=== PATIENT | female | born 1930 | race African-American/Black ===

== ENCOUNTER 2016-07-07 08:14 | Emergency (ER) | payer MEDICARE, OTHER ==
[~2016-07-07 08:14] MED LIST: ASAB PO; CRESTOR10 PO; L20 PO; LOTREL1 CA2 PO; NORV10 PO; SPIRO25 PO; TRANDAT300 PO
[2016-07-24] MEDS ORDERED: Z100 PO (10:58)
[2016-07-24] MEDS ORDERED: HYGROTON 25 MG25 MG PO (11:00)
[2016-07-24] MEDS ORDERED: COREG12 PO (11:01)
[2016-07-24] MEDS ORDERED: FOLIC ACID PO (11:02)
[2016-07-24] MEDS ORDERED: CATAPRES2 TOP (11:04)
[2016-07-24] MEDS ORDERED: CRESTOR5 MG PO (14:36)
== END 2016-07-07 08:57 | disposition home or self-care (01) ==
LOC: ER 08:14
DX: S05.11XA Contusion of eyeball and orbital tissues, right eye, initial encounter (principal); J40 Bronchitis, not specified as acute or chronic; I11.0 Hypertensive heart disease with heart failure; I50.9 Heart failure, unspecified; Z86.73 Personal history of transient ischemic attack (TIA), and cerebral infarction without residual deficits; Z90.710 Acquired absence of both cervix and uterus; Z95.0 Presence of cardiac pacemaker; Z79.82 Long term (current) use of aspirin; Z79.899 Other long term (current) drug therapy; W01.10XA Fall on same level from slipping, tripping and stumbling with subsequent striking against unspecified object, initial encounter
CPT/HCPCS: 70450; 71010; 72125; 94640; 96372; 99284

== ENCOUNTER 2016-07-29 14:49 | Day surgery (SDC) | payer MEDICARE, OTHER ==
[2016-07-26 10:57] LABS: HEMATOCRIT 35.8 % (36.0-48.0); HEMOGLOBIN 11.9 g/dL (12.0-16.0)
[2016-07-26 11:07] LABS: CALCIUM, SERUM 9.5 MG/DL (8.5-10.4); CHLORIDE, SERUM 99 MMOL/L (96-112); CO2 (CARBON DIOXIDE) 27 MMOL/L (24-34); CREATININE 1.94 MG/DL (0.55-1.02); GFR AFRICAN AMERICAN 26 ML/MIN (>=60); GFR NON AFRICAN AMERICAN 23 ML/MIN (>=60); GLUCOSE, SERUM 100 MG/DL (60-99); POTASSIUM, SERUM 3.8 MMOL/L (3.5-5.3); SODIUM, SERUM 135 MMOL/L (135-148)
[2016-07-26 11:08] LABS: BUN (BLOOD UREA NITROGEN) 43 MG/DL (6-23)
--- NOTE | ~2016-07-29 | OP ---
Record Of Operation [facility] [address] [place]. [address] NAME: JACINTO VALLADARES : [birth year] STATUS : [facility]#: [id number] AGE: 86 ADM/REG DATE : 07/29/16 MR#: [id number] REPORT SERV DATE: 07/29/16 DICTATED BY: COLLIN GIRALDO III DATE: 07/29/16 REPORT STATUS : Draft TRANSCRIBED BY: MODL DATE: 07/29/16 DATE OF PROCEDURE: 07/29/2016 PREOPERATIVE DIAGNOSIS: Microhematuria. POSTOPERATIVE DIAGNOSIS: Normal appearing bladder. Normal bilateral retrograde pyelograms. PROCEDURE: Cystoscopy and bilateral retrograde pyelograms. SURGEON: Collin Giraldo M.D. ANESTHESIA: General. INDICATION: Ms Valladares is an 86-year-old white female with microhematuria. She also has chronic kidney disease. She was referred to me for evaluation of her microhematuria. She has had a renal ultrasound. Consent is obtained for cystoscopy and bilateral retrograde pyelograms to complete her workup. DESCRIPTION OF PROCEDURE: After consent was obtained, the patient was identified. She was taken to the OR and put to sleep. She was positioned in the low lithotomy position and prepped and draped in usual fashion. The 22-Norwegian cystoscope was inserted into the bladder which was inspected. There were no tumors, stones, or foreign bodies. Both ureteral orifices were normally positioned and had a normal configuration. A cone-tipped ureteral catheter was flushed with contrast. I then inserted the left ureteral orifice. Contrast was gently injected under fluoroscopic guidance. It showed a normal-caliber ureter with no obstructions or filling defects. The pyelocaliceal system appeared normal. A right-sided retrograde pyelogram was then obtained, it was normal as well. The bladder was then drained and the scope removed. The patient was awakened and taken to recovery in stable condition. PH/MODL Collin Giraldo III, M.D. / [id number] CC: Haseeb Castillo III, M.D.
[~2016-07-29 14:49] MED LIST changes: +CATAPRES2 TOP; +COREG12 PO; +CRESTOR5 MG PO; +FOLIC ACID PO; +HYGROTON 25 MG25 MG PO; +Z100 PO
== END 2016-07-29 19:02 | disposition home or self-care (01) ==
LOC: SDC 14:49
PROVIDERS: Urology
PROC: BT141ZZ Fluoroscopy of Kidneys, Ureters and Bladder using Low Osmolar Contrast (ICD-10-PCS; principal; 2016-07-29 15:45)
DX: R31.29 Other microscopic hematuria (principal); Z95.0 Presence of cardiac pacemaker; I10 Essential (primary) hypertension; H91.90 Unspecified hearing loss, unspecified ear; I63.9 Cerebral infarction, unspecified
CPT/HCPCS: 80048; 85014; 85018; 93005; A9270-GY; C1758; J3010; Q9967